=== PATIENT | male | born 1980 | race Two or more races ===

== ENCOUNTER 2023-11-07 19:10 | Emergency (ER) | payer MEDICAID ==
[~2023-11-07] VITALS: Ht 185.4 cm; Wt 86.2 kg
[2023-11-07 19:24] VITALS: BP 161/81; PULSE 56; RESP 20; TEMP 98; O2SAT 99
[2023-11-07 19:28] VITALS: BP 161/79; PULSE 82; RESP 20; TEMP 97.8; O2SAT 98
[2023-11-07] MEDS: ACETAMINOPHEN EXTRA STRENGTH 500 MG TAB PO ONE (19:57)
[2023-11-07] MEDS ORDERED: IBUP-2213 PO (20:44)
== END 2023-11-07 21:09 | disposition home or self-care (01) ==
LOC: MED 19:10
DX: S46.811A Strain of other muscles, fascia and tendons at shoulder and upper arm level, right arm, initial encounter (principal); Z79.1 Long term (current) use of non-steroidal anti-inflammatories (NSAID); V43.52XA Car driver injured in collision with other type car in traffic accident, initial encounter; Y93.89 Activity, other specified; Y92.89 Other specified places as the place of occurrence of the external cause; Y99.8 Other external cause status
CPT/HCPCS: 73030; 99283; Q0092